=== PATIENT | male | born 1980 | race Caucasian/White ===

== ENCOUNTER 2020-10-20 08:40 | Emergency (ER) | payer OTHER, SELFPAY ==
[2020-10-20 09:03] VITALS: BP 145/89; PULSE 91; RESP 16; TEMP 37.2; O2SAT 96; BMI 30.4
--- NOTE | 2020-10-20 09:04 | XR_ITS ---
EXAMINATION: XR CHEST CLINICAL INFORMATION: SOB. Covid Positive. COMPARISON: None TECHNIQUE: Frontal view of the chest was obtained. FINDINGS: There is a patchy opacities seen in the right midlung and right lower lobe suspicious for developing infiltrate or interstitial disease. The right upper lobe and the entire left lung is expanded and clear. Heart size and pulmonary vascularity is normal. No gross bony abnormality seen. XR/XR chest 1V IMPRESSION: Patchy airspace opacity right midlung and right lower lobe suspicious for developing infiltrate.
--- NOTE | 2020-10-20 09:06 | ED.URI ---
HPI - URI/Sore Throat General Chief Complaint: Dyspnea Stated Complaint: covid +dizzy Time Seen by Provider: 10/20/20 08:53 Source: patient Mode of arrival: ambulatory Limitations: no limitations History of Present Illness HPI Narrative: 40-year-old male previously healthy here with dizziness with position changes and shortness of breath for the last 2 days. The patient tells me on Tuesday he was diagnosed with COVID-19. He did have a fever that morning but has not had a fever since. He has no cough, chest pain, vomiting, diarrhea, abdominal pain, headache. He feels like he has dizziness when he stands up and changes position only. He describes as feeling lightheaded. He also has shortness of breath as he describes as having to pause for a moment to take a breath MD elicited complaint: other (dizziness, SOB) Onset (ago): day(s) Consistency: intermittent Severity: mild Able to tolerate fluids by mouth: Yes Exacerbating factors: nothing Relieving factors: nothing Associated symptoms: denies other symptoms Treatments prior to arrival: none Related Data Previous Rx's Medication Instructions Recorded azithromycin 250 mg PO DAILY 4 Days #4 tab 10/20/20 cefdinir 300 mg PO BID #14 cap 10/20/20 Allergies Allergy/AdvReac Type Severity Reaction Status Date / Time No Known Allergies Allergy Verified 10/20/20 09:01 Review of Systems Review of Systems: Yes all other systems are reviewed and are negative Constitutional: Constitutional: Reports no additional constitutional complaints, Denies body ache(s), Denies chills, Denies fever(s), Denies headache(s) and Denies weakness Eyes: Eyes: Reports no additional eye complaints and Denies change in vision ENT: Reports system reviewed and no additional complaints, except as documented, Reports dizziness, Denies headache(s), Denies nasal congestion, Denies nasal discharge and Denies neck pain Cardiovascular: Cardiovascular: Reports no additional cardiovascular complaints, Denies chest pain, Denies leg edema and Reports dyspnea Respiratory: Respiratory: Reports no additional respiratory complaints, Denies cough and Reports dyspnea Gastrointestinal: Gastrointestinal: Reports no additional gastrointestinal complaints, Denies abdominal pain, Denies diarrhea, Denies nausea and Denies vomiting Genitourinary: Genitourinary: Denies urinary incontinence Musculoskeletal: Musculoskeletal: Reports no additional musculoskeletal complaints, Denies back pain, Denies arthralgias, Denies joint swelling, Denies neck pain, Denies numbness and Denies tingling Integumentary/Breasts: Skin/Breast: Reports system reviewed and no additional complaints, except as docu and Denies rash Neurologic: Reports system reviewed and no additional complaints, except as documented, Denies Abnormal speech present, Reports dizziness, Denies headache(s), Denies numbness, Denies tingling and Denies weakness PMF Past Medical History Attestation statement: The following information was validated with the patient. Source: obtained from family and nursing notes reviewed Medical History GERD (gastroesophageal reflux disease) Migraine Social History Social History Smoking Status: Never smoker Use of substances other than those prescribed or required for medical reasons: No Advance Directives: No (ISOLATION) Advance Directives Information Provided: No (ISOLATION) Physical Exam Vital Signs: Vital Signs: Last Vital Signs Temp 98.5 F 10/20/20 11:29 Pulse 95 10/20/20 13:50 Resp 18 10/20/20 11:29 BP 128/82 10/20/20 13:50 Pulse Ox 95 10/20/20 13:50 Body Mass Index 30.4 Const: General: cooperative, healthy appearing, comfortable and no acute distress Orientation/consciousness: patient oriented x3 Limitations: no limitations HENMT: Head: Yes normal to inspection Ears: hearing grossly normal bilaterally General nose exam: Normal external nose present Face and sinus: Yes normal facial exam Mouth: Normal oral and palatal mucosa present Throat: Yes posterior oropharynx normal Eyes: General: appearance normal, both eyes and all related structures Pupils: Equal, round and reactive pupils present Neck: Neck: Yes normal visual inspection Chest: Chest palpation & inspection: normal inspection of the chest Resp: Effort & Inspection: normal respiratory effort Auscultation: clear to auscultation bilaterally Cardio: Rate: regular rate Rhythm: regular rhythm Peripheral pulses: Peripheral pulses 2+ throughout GI: Inspection: Yes normal to inspection Palpation (GI): Soft to palpation and nontender Auscultation: normal bowel sounds Back/Spine/Pelvis: Thoracic/Lumbar Spine: thoracic and lumbar spine normal to inspection Skin: General skin exam: no rashes or lesions noted Neuro: General: patient oriented x3, no focal motor deficits and normal sensation to monofilament Cranial nerves: Yes CN's II-XII intact bilaterally, Yes Equal, round and reactive pupils present, Yes Bilaterally intact EOM present, Yes Nystagmus not present, Yes Normal facial strength present and Yes Midline tongue present Cognition (Neuro): normal cognition Speech: No Abnormal speech present Gait exam (Neuro): Normal gait present Motor exam (neuro): 5/5 motor strength present throughout Sensory Exam: Normal double simultaneous stimulation for sensation Coordination: [id number] test normal, [id number] test normal and tandem gait normal Extrem: General: Yes normal to inspection Course Course Course Narrative: 40-year-old male who has known COVID positive here with lightheadedness which is worsened with position changes and some occasional shortness of breath. On arrival the patient is afebrile, stable vital signs, normal neurological exam with clear lung sounds. He has no apparent shortness of breath on exam. Will check chest x-ray, labs and orthostatics vital signs. 0950- X-ray consistent with pneumonia. At this time infection is suspected. Blood cultures and lactic acid ordered. Antibiotics ordered. 1130- labs unremarkable. The patient is feeling improved. He is ambulatory around the room with an oxygen saturation greater than 96%. Will plan for discharge home after antibiotics. Reviewed worrisome signs and symptoms with the patient when to return to the emergency department. Comfortable discharge home. MDM - URI/Sore Throat Medical Records Attestation: I reviewed the patient's medical records. Lab Data Attestation: I reviewed the patient's lab results. Result diagrams: 10/20/20 09:10/20/20 10:20 Labs: Lab Results 10/20/20 10/20/20 10/20/20 Range/Units 09: 09: 10:20 WBC 5.7 (4.8-10.8) X10*3/uL RBC 5.02 (4.60-5.80) X10*6/uL Hgb 15.3 (14.0-18.0) g/dl Hct 43.2 (42-52) % MCV 86.1 (80-98) fL MCH 30.5 (27.0-33.0) pg MCHC 35.4 (31.0-36.0) g/dl RDW 11.3 (11.0-16.0) % Plt Count 283 (160-400) X10*3/uL MPV 9.2 L (9.4-12.4) fL Immature Gran % (Auto) 0.7 H (0.0-0.4) % Neut % (Auto) 69.7 (45-73) % Lymph % (Auto) 20.3 (20-40) % [place] % (Auto) 8.6 (2-11) % Eos % (Auto) 0.5 (0-4) % Baso % (Auto) 0.2 (0-2) % Lymph # (Auto) 1.2 (1.2-4.9) X10*3/uL [place] # (Auto) 0.5 (0.1-1.2) X10*3/uL Eos # (Auto) 0.0 (0.0-0.4) X10*3/uL Baso # (Auto) 0.0 (0.0-0.2) X10*3/uL Abs Immat Gran (auto) 0.04 H (0.00-0.03) X10*3/uL Absolute Neuts (auto) 4.0 (2.0-8.3) X10*3/uL Absolute Nucleated RBC 0.000 (0.0-0.012) X10*3/uL Nucleated RBC % (auto) 0.0 (0.0-0.2) /100WBC Sodium Cancelled 137 Potassium Cancelled 3.5 Chloride Cancelled 105 Carbon Dioxide Cancelled 23 Anion Gap Cancelled 13 BUN Cancelled 11 Creatinine Cancelled 0.76 Estim Creat Clear Calc Cancelled 144.1 Estimated GFR Cancelled > 60 Random Glucose Cancelled 95 Lactic Acid (0.5-2.0) mmol/L Calcium Cancelled 8.4 Magnesium Cancelled 2.1 Total Bilirubin Cancelled 0.5 Direct Bilirubin Cancelled 0.2 AST Cancelled 16 ALT Cancelled 15 Alkaline Phosphatase Cancelled 61 Total Protein Cancelled 7.0 Albumin Cancelled 4.1 10/20/20 Range/Units 10:20 WBC (4.8-10.8) X10*3/uL RBC (4.60-5.80) X10*6/uL Hgb (14.0-18.0) g/dl Hct (42-52) % MCV (80-98) fL MCH (27.0-33.0) pg MCHC (31.0-36.0) g/dl RDW (11.0-16.0) % Plt Count (160-400) X10*3/uL MPV (9.4-12.4) fL Immature Gran % (Auto) (0.0-0.4) % Neut % (Auto) (45-73) % Lymph % (Auto) (20-40) % [place] % (Auto) (2-11) % Eos % (Auto) (0-4) % Baso % (Auto) (0-2) % Lymph # (Auto) (1.2-4.9) X10*3/uL [place] # (Auto) (0.1-1.2) X10*3/uL Eos # (Auto) (0.0-0.4) X10*3/uL Baso # (Auto) (0.0-0.2) X10*3/uL Abs Immat Gran (auto) (0.00-0.03) X10*3/uL Absolute Neuts (auto) (2.0-8.3) X10*3/uL Absolute Nucleated RBC (0.0-0.012) X10*3/uL Nucleated RBC % (auto) (0.0-0.2) /100WBC Sodium Potassium Chloride Carbon Dioxide Anion Gap BUN Creatinine Estim Creat Clear Calc Estimated GFR Random Glucose Lactic Acid 0.8 (0.5-2.0) mmol/L Calcium Magnesium Total Bilirubin Direct Bilirubin AST ALT Alkaline Phosphatase Total Protein Albumin Imaging Data Chest x-ray: Attestation: I personally reviewed and interpreted this imaging study as follows: Radiologist's impression: EXAMINATION: XR CHEST CLINICAL INFORMATION: SOB. Covid Positive. COMPARISON: None TECHNIQUE: Frontal view of the chest was obtained. FINDINGS: There is a patchy opacities seen in the right midlung and right lower lobe suspicious for developing infiltrate or interstitial disease. The right upper lobe and the entire left lung is expanded and clear. Heart size and pulmonary vascularity is normal. No gross bony abnormality seen. XR/XR chest 1V IMPRESSION: Patchy airspace opacity right midlung and right lower lobe suspicious for developing infiltrate. Discharge Plan Discharge Clinical Impression: Pneumonia due to 2019-nCoV Patient Disposition: Home, Self-Care Instructions: Bacterial Pneumonia (ED) Additional Instructions: start your antibiotics tomorrow Increase fluids as much as possible at home Change positions slowly Return for severe shortness of breath, chest pain Prescriptions: New azithromycin 250 mg tablet 250 mg PO DAILY 4 Days Qty: 4 RF: 0 cefdinir 300 mg capsule 300 mg PO BID Qty: 14 RF: 0 Referrals: Gonzalo Recio MD [Primary Care Provider] - 2 days Discharge Date/Time: 10/20/20 14:14
[2020-10-20 09:12] VITALS: BP 130/88; BP 145/89; PULSE 95
[2020-10-20 09:13] VITALS: BP 127/89; PULSE 107
[2020-10-20 09:31] LABS: MANUAL DIFF FLAG NO
[2020-10-20 09:32] LABS: Basophils Percent Auto 0.2 % (0-2); Eosinophils Percent Auto 0.5 % (0-4); Hematocrit 43.2 % (42-52); Hemoglobin 15.3 g/dl (14.0-18.0); Imm Gran Abs Auto 0.04 X10*3/uL (0.00-0.03); Imm Gran Pct Auto 0.7 % (0.0-0.4); Lymphocytes Absolute Auto 1.2 X10*3/uL (1.2-4.9); Lymphocytes Percent Auto 20.3 % (20-40); Mean Corpuscular HGB Conc 35.4 g/dl (31.0-36.0); Mean Corpuscular Hemoglobin 30.5 pg (27.0-33.0); Mean Corpuscular Volume 86.1 fL (80-98); Mean Platelet Volume 9.2 fL (9.4-12.4); Monocytes Absolute Auto 0.5 X10*3/uL (0.1-1.2); Monocytes Percent Auto 8.6 % (2-11); Neutrophils Percent Auto 69.7 % (45-73); Platelet Count 283 X10*3/uL (160-400); Red Blood Count 5.02 X10*6/uL (4.60-5.80); Red Cell Distribution Width 11.3 % (11.0-16.0); White Blood Count 5.7 X10*3/uL (4.8-10.8)
[2020-10-20] MEDS: cefTRIAXone sodium 1 GM in 0.9 % Sodium Chloride 50 ML IV (10:27)
[2020-10-20] MEDS: 0.9 % Sodium Chloride 1,000 ML 999 ML IV (10:28)
[2020-10-20 10:48] VITALS: O2SAT 95
--- NOTE | 2020-10-20 10:49 | PC.NURSE ---
PT TRIAGED, C/O SOB AND DIZZINESS, FEVERS FOR A FEW DAYS. RECENT COVID +. SPO2 WNL, AFEBRILE AT THIS TIME. LS CLEAR THROUGHOUT. PT A&OX3, SPEAKING IN CLEAR FULL SENTENCES. RESP EVEN AND NONLABOURED. SKIN PWD. ALL SPECIMENS OBTAINED, 20G IN L FOREARM. ABT HUNG ORDERED
[2020-10-20 11:01] LABS: Lactic Acid 0.8 mmol/L (0.5-2.0)
[2020-10-20 11:06] LABS: Alanine Aminotransferase 15 U/L (0-40); Albumin Level 4.1 g/dL (3.5-5.0); Alkaline Phosphatase 61 U/L (39-117); Anion Gap 13 (12-20); Aspartate Amino Transferase 16 U/L (5-37); Bilirubin Direct 0.2 mg/dL (0.0-0.5); Bilirubin Total 0.5 mg/dL (0.0-1.0); Blood Urea Nitrogen 11 mg/dL (9-16); Calcium 8.4 mg/dL (8.4-10.2); Carbon Dioxide 23 mmol/L (22-29); Chloride 105 mmol/L (96-108); Creatinine Clr Calc Pharmacy 144.1; Estimated Glomerular Filt Rate > 60; Glucose Random 95 mg/dL (60-115); Magnesium 2.1 mg/dL (1.6-2.6); Potassium 3.5 mmol/l (3.3-5.1); Sodium 137 mmol/L (135-145)
[2020-10-20] MEDS: Azithromycin 500 MG in 0.9 % Sodium Chloride 250 ML 125 MG IV (11:28)
[2020-10-20 11:29] VITALS: BP 114/77; PULSE 69; RESP 18; TEMP 36.9; O2SAT 95
[2020-10-20 13:50] VITALS: BP 128/82; PULSE 95; O2SAT 95
[2020-10-20] MEDS: Acetaminophen 325 MG TABLET 650 MG PO (13:52)
== END 2020-10-20 14:14 | disposition home or self-care (01) ==
PROVIDERS: Nurse Practitioner Family; Emergency Provider Emergency Medicine; PCP Internal Medicine
DX: U07.1 COVID-19 (principal); R06.00 Dyspnea, unspecified; J12.89 Other viral pneumonia; Z20.828 Contact with and (suspected) exposure to other viral communicable diseases
CPT/HCPCS: 36415; 71045; 80048; 80076; 83605; 83735; 85025; 87040; 96365; 96366; 96367; 99285; J0456; J0696

== ENCOUNTER 2023-03-11 10:12 | Emergency (ER) | payer OTHER, SELFPAY ==
--- NOTE | ~2023-03-11 | US_ITS ---
EXAMINATION: US SCROTUM CLINICAL INFORMATION: Left-sided pain COMPARISON: None available. TECHNIQUE: A sonogram of the scrotum was performed assessing kurtz-scale appearance and color Doppler flow. Spectral Doppler analysis of the arterial and venous flow were performed in the testes bilaterally. FINDINGS: RIGHT: Right testicle measures 4.3 x 2.7 x 3.1 cm, volume 19 mL. No focal testicular parenchymal lesions are visualized. Spectral Doppler analysis of the arterial and venous flow is normal in the right testis. Small right hydrocele. Right epididymal head is normal in size. No right varicocele is seen. Right epididymal Doppler flow is normal. LEFT: Left testicle measures 4.3 x 2.6 x 3.3 cm, volume 19 mL. No focal testicular parenchymal lesions are visualized. Spectral Doppler analysis of the arterial and venous flow is normal in the left testis. Small left hydrocele. Left epididymal head is normal in size. No left varicocele is seen. Left epididymal Doppler flow is normal. US/US scrotum doppler IMPRESSION: Small bilateral hydroceles.
--- NOTE | ~2023-03-11 | US_ITS ---
EXAMINATION: US SCROTUM CLINICAL INFORMATION: Left-sided pain COMPARISON: None available. TECHNIQUE: A sonogram of the scrotum was performed assessing kurtz-scale appearance and color Doppler flow. Spectral Doppler analysis of the arterial and venous flow were performed in the testes bilaterally. FINDINGS: RIGHT: Right testicle measures 4.3 x 2.7 x 3.1 cm, volume 19 mL. No focal testicular parenchymal lesions are visualized. Spectral Doppler analysis of the arterial and venous flow is normal in the right testis. Small right hydrocele. Right epididymal head is normal in size. No right varicocele is seen. Right epididymal Doppler flow is normal. LEFT: Left testicle measures 4.3 x 2.6 x 3.3 cm, volume 19 mL. No focal testicular parenchymal lesions are visualized. Spectral Doppler analysis of the arterial and venous flow is normal in the left testis. Small left hydrocele. Left epididymal head is normal in size. No left varicocele is seen. Left epididymal Doppler flow is normal. US/US scrotum IMPRESSION: Small bilateral hydroceles.
[2023-03-11 10:25] VITALS: BP 141/74; PULSE 69; RESP 18; TEMP 36.2; O2SAT 99; BMI 32.6
--- NOTE | 2023-03-11 10:33 | ED_ITS ---
HPI - Male Genitourinary General Chief complaint: Urogenital-Male Stated complaint: Abd Pain into Testicles Related Data Previous Rx's Medication Instructions Recorded azithromycin 250 mg tablet 250 mg PO DAILY 4 days #4 tabs 10/20/20 cefdinir 300 mg capsule 300 mg PO BID #14 caps 10/20/20 Allergies Allergy/AdvReac Type Severity Reaction Status Date / Time No Known Allergies Allergy Verified 10/20/20 09:01 [facility] Past Medical History Medical History GERD (gastroesophageal reflux disease) Migraine Physical Exam Vital Signs: Vital Signs: Last Vital Signs Temp 97.1 F 03/11/23 10:25 Pulse 69 03/11/23 10:25 Resp 18 03/11/23 10:25 BP 141/74 H 03/11/23 10:25 Pulse Ox 99 03/11/23 10:25 BMI result Body Mass Index 32.6 Discharge Plan Discharge Prescriptions: No Action azithromycin 250 mg tablet 250 mg PO DAILY 4 Days Qty: 4 0RF cefdinir 300 mg capsule 300 mg PO BID Qty: 14 0RF
[2023-03-11 14:12] LABS: Basophils Percent Auto 0.6 % (0-2); Eosinophils Absolute Auto 0.1 X10*3/uL (0.0-0.4); Eosinophils Percent Auto 1.1 % (0-4); Hematocrit 40.6 % (42.0-52.0); Hemoglobin 14.6 g/dl (14.0-18.0); Imm Gran Abs Auto 0.02 X10*3/uL (0.00-0.03); Imm Gran Pct Auto 0.3 % (0.0-0.4); Lymphocytes Absolute Auto 2.1 X10*3/uL (1.2-4.9); Lymphocytes Percent Auto 28.6 % (20-40); MANUAL DIFF FLAG NO; Mean Corpuscular Hemoglobin 31.7 pg (27.0-33.0); Mean Corpuscular Volume 88.1 fL (80.0-98.0); Mean Platelet Volume 9.5 fL (9.4-12.4); Monocytes Absolute Auto 0.6 X10*3/uL (0.1-1.2); Neutrophils Absolute Auto 4.4 x10*3/uL (2.0-8.3); Neutrophils Percent Auto 61.4 % (45-73); Platelet Count 281 X10*3/uL (160-400); Red Blood Count 4.61 X10*6/uL (4.60-5.80); White Blood Count 7.2 X10*3/uL (4.8-10.8)
[2023-03-11 14:14] LABS: Alanine Aminotransferase 31 U/L (0-40); Albumin Level 4.3 g/dL (3.5-5.0); Alkaline Phosphatase 69 U/L (39-117); Anion Gap 13 (12-20); Aspartate Amino Transferase 23 U/L (5-37); Bilirubin Total 0.7 mg/dL (0.0-1.0); Blood Urea Nitrogen 10 mg/dL (9-16); Calcium 9.3 mg/dL (8.4-10.2); Carbon Dioxide 25 mmol/L (22-29); Chloride 107 mmol/L (96-108); Creatinine Clr Calc Pharmacy 115.8; Estimated Glomerular Filt Rate > 60; Glucose Random 82 mg/dL (60-115); Magnesium 2.1 mg/dL (1.6-2.6); Potassium 4.3 mmol/L (3.3-5.1); Sodium 141 mmol/L (135-145); Total Protein 7.1 g/dL (6.5-8.0)
--- NOTE | 2023-03-11 14:54 | ED.MALEGU ---
HPI - Male Genitourinary General Chief complaint: Urogenital-Male Stated complaint: Abd Pain into Testicles Time Seen by Provider: 03/11/23 14:53 History of Present Illness HPI Narrative: Patient complains of groin pain on the left side shooting into the left testicle and left testicle pain which started 2 days ago, he went to his primary doctor's office were did a CT scan to check for kidney stones and this was negative He has no other abdominal pain, just left groin just above the testicle and left testicular pain, there is no dysuria no discharge no burning with urination no fever no chills no nausea no vomiting no rashes, patient has no new sexual partners Related Data Previous Rx's Medication Instructions Recorded azithromycin 250 mg tablet 250 mg PO DAILY 4 days #4 tabs 10/20/20 cefdinir 300 mg capsule 300 mg PO BID #14 caps 10/20/20 Allergies Allergy/AdvReac Type Severity Reaction Status Date / Time No Known Allergies Allergy Verified 10/20/20 09:01 [facility] Past Medical History Medical History GERD (gastroesophageal reflux disease) Migraine Social History Social History Advance Directives: Yes Advance Directives Information Provided: Yes Advance Directives on File: No Physical Exam Vital Signs: Vital Signs: Last Vital Signs Temp 97.6 F 03/11/23 16:24 Pulse 65 03/11/23 16:24 Resp 16 03/11/23 16:24 BP 138/90 H 03/11/23 16:24 Pulse Ox 99 03/11/23 16:24 O2 Del Method Room Air 03/11/23 16:24 BMI result Body Mass Index 32.6 General appearance no acute distress The eyes anicteric no pallor The pharynx is clear mucous membranes moist Neck is supple Chest wall nontender no respiratory distress The abdomen is soft and nontender Genital exam, normal appearance no redness, no sores no discharge, left testicle in the back had a tender area that was mildly indurated but not red fluctuant or warmth, no hernia was palpated Skin no rashes Extremities full range of motion x4 Course Course Course Narrative: Patient with a complaint of left testicular pain There was a small indurated area palpated in the left testicle, but I did not feel any obvious hernia there was no redness or warmth no fluctuance no obvious abscess Scrotal ultrasound showed small hydroceles but no evidence of hernia abscess or torsion, no epididymitis Urinalysis was normal, no red blood cells seen no white cells white count was normal, chemistry and renal function were normal Pain is intermittent and positional and worse when standing, no pain when he is resting Patient is advised I am not sure what is causing the pain it is possible it is a small hernia that I could not palpate that is intermittent going in and out, it is also possible that he could be developing an abscess or skin infection that has not yet declared itself and he will check in the mirror and he will return if he develops any worse swelling redness any signs of a developing infection Medical Decision Making Lab Data MDM Lab Attestation statement: I reviewed the patient's lab results. 03/11/23 13:43 03/11/23 13:43 Labs: Lab Results 03/11/23 03/11/23 03/11/23 Range/Units 13:43 13:43 15:21 WBC 7.2 (4.8-10.8) X10*3/uL RBC 4.61 (4.60-5.80) X10*6/uL Hgb 14.6 (14.0-18.0) g/dl Hct 40.6 L (42.0-52.0) % MCV 88.1 (80.0-98.0) fL MCH 31.7 (27.0-33.0) pg MCHC 36.0 (31.0-36.0) g/dl RDW 12.0 (11.0-16.0) % Plt Count 281 (160-400) X10*3/uL MPV 9.5 (9.4-12.4) fL Immature Gran % (Auto) 0.3 (0.0-0.4) % Neut % (Auto) 61.4 (45-73) % Lymph % (Auto) 28.6 (20-40) % [place] % (Auto) 8.0 (2-11) % Eos % (Auto) 1.1 (0-4) % Baso % (Auto) 0.6 (0-2) % Lymph # (Auto) 2.1 (1.2-4.9) X10*3/uL [place] # (Auto) 0.6 (0.1-1.2) X10*3/uL Eos # (Auto) 0.1 (0.0-0.4) X10*3/uL Baso # (Auto) 0.0 (0.0-0.2) X10*3/uL Abs Immat Gran (auto) 0.02 (0.00-0.03) X10*3/uL Absolute Neuts (auto) 4.4 (2.0-8.3) x10*3/uL Absolute Nucleated RBC 0.000 (0.0-0.012) X10*3/uL Nucleated RBC % (auto) 0.0 (0.0-0.2) /100WBC Sodium 141 (135-145) mmol/L Potassium 4.3 (3.3-5.1) mmol/L Chloride 107 (96-108) mmol/L Carbon Dioxide 25 (22-29) mmol/L Anion Gap 13 (12-20) BUN 10 (9-16) mg/dL Creatinine 0.96 (0.5-1.4) mg/dL Estim Creat Clear Calc 115.8 Estimated GFR > 60 Random Glucose 82 (60-115) mg/dL Calcium 9.3 D (8.4-10.2) mg/dL Magnesium 2.1 (1.6-2.6) mg/dL Total Bilirubin 0.7 (0.0-1.0) mg/dL AST 23 (5-37) U/L ALT 31 (0-40) U/L Alkaline Phosphatase 69 (39-117) U/L Total Protein 7.1 (6.5-8.0) g/dL Albumin 4.3 (3.5-5.0) g/dL Urine Color Yellow Urine Appearance Turbid Urine pH 6.5 (5.0-9.0) Ur Specific [place] 1.015 (1.005-1.025) Urine Protein Negative (Neg-Trace) mg/dL Urine Glucose (UA) Negative (Negative) mg/dL Urine Ketones Negative (Negative) mg/dL Urine Blood Negative (Negative) Urine Nitrite Negative (Negative) Ur Leukocyte Esterase Negative (Negative) Discharge Plan Discharge Clinical Impression: Pain in testicle Patient Disposition: Home, Self-Care Additional Instructions: Ultrasound did not show any acute or emergent findings that would explain the pain and discomfort It is possible that this could be early development of an abscess or skin infection, so check the skin and the area carefully for any redness or swelling It is possible there is a small hernia that I could not palpate that is intermittently going and now I am not sure what is causing the pain , so you will need to return if pain worsens, if you feel anything swelling, any redness any worse condition or any concerns Follow with urologist and primary doctor Prescriptions: No Action azithromycin 250 mg tablet 250 mg PO DAILY 4 Days Qty: 4 0RF cefdinir 300 mg capsule 300 mg PO BID Qty: 14 0RF Referrals: Domingo Ventura MD [Physician] - (Left testicular pain/hydroceles) Stand Alone Forms: Work/School Release Interventions: ED Discharge Assessment Last Done: 03/11/23 16:48 Discharge Date/Time: 03/11/23 16:49
[2023-03-11 15:45] LABS: Appearance Urine Turbid; Color Urine Yellow; Glucose Urine UA Negative (Negative); Leukocyte Esterase Urine Negative (Negative); Nitrite Urine Negative (Negative); PH 6.5 (5.0-9.0); Specific Gravity - Urine 1.015 (1.005-1.025); Urine Blood Negative (Negative); Urine Ketones Negative (Negative); Urine Protein Negative (Neg-Trace)
[2023-03-11 16:24] VITALS: BP 138/90; PULSE 65; RESP 16; TEMP 36.4; O2SAT 99
== END 2023-03-11 16:49 | disposition home or self-care (01) ==
PROVIDERS: Physician Assistant Medical; Emergency Provider Emergency Medicine; PCP Internal Medicine
DX: N50.812 Left testicular pain (principal); R10.32 Left lower quadrant pain
CPT/HCPCS: 36415; 76870; 80053; 81003; 83735; 85025; 93975; 99283; 99284